=== PATIENT | female | born 1975 | race Caucasian/White ===

== ENCOUNTER 2023-09-21 16:21 | Emergency (ER) | payer OTHER ==
[~2023-09-21] VITALS: Ht 182.9 cm; Wt 83.3 kg
[2023-09-21] MEDS ORDERED: MELOXICAM15 MG PO (18:21)
[2023-09-21 19:49] VITALS: BP 127/76
== END 2023-09-21 19:33 | disposition home or self-care (01) ==
LOC: ED 16:21
DX: S82.832A Other fracture of upper and lower end of left fibula, initial encounter for closed fracture (principal); X50.1XXA Overexertion from prolonged static or awkward postures, initial encounter; Y93.66 Activity, soccer; Y99.0 Civilian activity done for income or pay
CPT/HCPCS: 73610; 99283-25

== ENCOUNTER 2024-03-29 11:54 | Day surgery (SDC) | payer OTHER ==
[~2024-03-29 11:54] MED LIST: IBLOOD GLUCOSE TEST STRIP 1 EA TEST VI PRN; LACTATED RINGER'S 1,000 ML IV SCH; LIDOCAINE HCL 1% 5 ML SDV INJ ONE; MELOXICAM15 MG PO; MIDAZOLAM HCL 5 MG/5 ML VIAL IV PRN; fentaNYL citrate 100 MCG/2 ML VIAL IV PRN
[2024-03-29 12:10] VITALS: BP 127/83
[2024-03-29] MEDS ORDERED: DAILY VALUE1 EACH PO (12:13)
[2024-03-29] MEDS ORDERED: CALCIUM500 MG PO (12:13)
[2024-03-29] MEDS ORDERED: GLUCOSAMINE-CH1 EACH PO (12:13)
[2024-03-29] MEDS ORDERED: HAIR, SKIN & N1 EAC2 PO (12:14)
[2024-03-29] MEDS ORDERED: MAGNESIUM500 MG PO (12:14)
[2024-03-29] MEDS ORDERED: MIDAZOLAM HCL 5 MG/5 ML VIAL ONE (12:26)
[2024-03-29] MEDS ORDERED: fentaNYL citrate 100 MCG/2 ML VIAL ONE (12:26)
[2024-03-29] MEDS ORDERED: MIDAZOLAM HCL 2 MG/2 ML VIAL ONE (13:15)
--- NOTE | 2024-03-29 13:37 | NUR ---
03/29/24 1337 Tracey Dueñas 1330-PT ARRIVES TO PACU RESTING ON LT SIDE, PT AWAKENS EASILY TO VERBAL STIMULI, DENIES PAIN OR NAUSEA, ENCOURAGED TO PASS GAS. PT FALLS BACK TO SLEEP EASILY, VSS ON 2L VIA NC, RR EVEN AND UNLABORED. 1335-PT TITRATED TO RA, VS REMAIN STABLE.
[2024-03-29 14:00] VITALS: BP 110/85
--- NOTE | 2024-03-30 13:30 | OR ---
[facility] [address], [place] [address] Signed DATE OF OPERATION: 03/29/2024 SURGEON: Sander Velasquez MD PREOPERATIVE DIAGNOSIS: Colon screening. POSTOPERATIVE DIAGNOSIS: 1 cm pedunculated polyp at 25 cm and two sessile small polyps at 20 cm. PROCEDURES: 1. Total colonoscopy to cecum with hot snare polypectomy x1 with application of hemoclip. 2. Cold morcellation polypectomy x2. ANESTHESIA: Intravenous sedation; fentanyl 200 mcg Versed 11 mg. INDICATION: This 48-year-old white woman is a patient of Johanna Ventura and Dr. Whipple (PET C[employer]GIVER) and referred for screening colonoscopy based on her age. She has no symptoms of bleeding, diarrhea or constipation and no family history of colon cancer. She is admitted to undergo colonoscopy for screening. She understands the risk of bleeding, infection, and perforation. FINDINGS: The prep was excellent. Complete colonoscopy was undertaken to the cecum. The sigmoid was somewhat tortuous. There was a relatively large pedunculated polyp at 25 cm which was excised with hot snare polypectomy technique. Application of hemoclip to the stump was additionally undertaken. There were two small sessile polyps at 20 cm, both excised also with cold morcellation technique. There were no other findings of note. PROCEDURE IN DETAIL: The patient was brought to the endoscopy suite and placed in the lateral decubitus position, given intravenous sedation to the point of slurred speech and nystagmus. Digital rectal examination was normal. An Olympus video colonoscope was passed in the rectum and manipulated throughout the colon noting a relatively large pedunculated polyp at approximately the sigmoid. The scope was advanced beyond this ultimately to the cecum. The ileocecal valve and Electronically Signed By: SANDER VELASQUEZ MD 03/30/24 [id number] PATIENT NAME: JAJA BOOTH OPERATIVE REPORT DATE OF : 75 REPORT #: [id number] PHYSICIAN: SANDER VELASQUEZ MD PCP: JOHANNA VENTURA PAC REPORT IS CONFIDENTIAL AND NOT TO BE RELEASED WITHOUT AUTHORIZATION [facility] [address], [place] [address] Signed appendiceal orifice were normal. The scope was then withdrawn and examination throughout showed no sign of abnormality until the pedunculated polyp once again. This was located approximately 25 cm from the anal verge. This was excised with hot snare polypectomy technique. It was grasped with a three prong grasper and withdrawn, removed and offloaded. The scope was reintroduced and passed to the site of polypectomy, which showed hemostasis, but an eschar in the central portion of the stalk that made one consider additional measures so as to avoid slough and bleed later. On that basis, a hemoclip was applied to it. The scope was then withdrawn and approximately 5 cm away at 20 cm there were two small polyps, one hyperplastic, the other adenomatous, both of them about 5 mm. These were excised with cold morcellation technique. Further withdrawal of the scope allowed for good visualization of the rectum. Retroflexed view was normal. Scope was removed and the patient was taken to the recovery room in good condition. CONCLUSION DIAGNOSIS: Polyps x3, excised. PLAN: Recommend repeat colonoscopy in 3 to 5 years based on the polyp seen. She will return to the ongoing care of ANNE MARIE Centeno. MD ALEJANDRA Luo/ELY /[id number] cc: Johanna Ventura PA-C Copies: JOHANNA VENTURA ~ Electronically Signed By: SANDER VELASQUEZ MD 03/30/24 1330 PATIENT NAME: JAJA BOOTH OPERATIVE REPORT DATE OF : 75 REPORT #: [id number] PHYSICIAN: SANDER VELASQUEZ MD PCP: JOHANNA VENTURA REPORT IS CONFIDENTIAL AND NOT TO BE RELEASED WITHOUT AUTHORIZATION
--- NOTE | 2024-04-02 10:43 | PATH ---
[facility] [address], [place] [address] Signed SPECIMEN(S): A SIGMOID POLYP AT 25 CM SPECIMEN(S): B COLON POLYP AT 20 CM SPECIMEN(S): C COLON POLYP AT 20 CM SPECIMEN SOURCE: A. SIGMOID POLYP AT 25 CM B. COLON POLYP AT 20 CM C. COLON POLYP AT 20 CM CLINICAL HISTORY: Screening, post: Polyps x 3. Special: #1 pedunculated polyp at 25 cm of sigmoid, #2 hyperplastic polyp at 20 cm, #3 hyperplastic polyp (#2) at 20 cm. FINAL PATHOLOGIC DIAGNOSIS: A. Colon, sigmoid at 25 cm, polypectomy: - Tubulovillous adenoma B. Colon, 20 cm, polypectomy: - Hyperplastic polyp C. Colon, 20 cm, polypectomy #2: - Hyperplastic polyp BRP MICROSCOPIC EXAMINATION: Histologic sections of all submitted blocks are examined by light microscopy. These findings, together with the gross examination, support the pathologic diagnosis. GROSS DESCRIPTION: A. The specimen, labeled and designated "Clair Booth, sigmoid polyp at 25 cm," is received in formalin and consists of one james soft tissue fragment, 1.1 cm. Entirely submitted in (A1). B. The specimen, labeled and designated "Clair Booth, colon polyp at 20 cm," is received in formalin and consists of four james soft tissue fragments, ranging from 0.2-0.3 cm. Entirely submitted in (B1). C. The specimen, labeled and designated "Carlos Alberto, E, colon polyp at 20 cm #2," is received in formalin and consists of three james soft tissue fragments, ranging from 0.2-0.4 cm. Entirely submitted in (C1). AB (under the direct supervision of a pathologist) The Gross Description was prepared using a voice recognition system. The report PATIENT NAME: JAJA BOOTH PATHOLOGY DATE OF : 75 REPORT #: [id number] PHYSICIAN: SANDER WILLS PCP: JOHANNA GRACIA PAC REPORT IS CONFIDENTIAL AND NOT TO BE RELEASED WITHOUT AUTHORIZATION [facility] [address], [place] [address] Signed was reviewed for accuracy; however, sound-alike word errors, addition and/or deletions may occur. If there is any question about this report, please contact Client Services. ADDITIONAL NOTES: Immunohistochemical and/or in situ hybridization studies if performed in this case included appropriate positive controls that reacted as expected. This test was developed and its performance characteristics determined by [facility]. It has not been cleared or approved by the U.S. Food and Drug Administration. The FDA has determined that such clearance or approval is not necessary. This test is used for clinical purposes. It should not be regarded as investigational or for research. [facility] is certified under the Clinical Laboratory Improvement Amendments of 1988 (CLIA) as qualified to perform high complexity clinical laboratory testing. PERFORMING LABORATORY: Technical component was performed by [facility], [address] [place] [address] (CLIA# [id number]). Professional interpretation was performed by [facility], [address] [place] [address] (CLIA#: [id number]). Diagnostician: Ronny Shaffer MD Pathologist Electronically Signed 04/02/2024 Copies: ~ PATIENT NAME: JAJA BOOTH PATHOLOGY DATE OF : 75 REPORT #: [id number] PHYSICIAN: SANDER WILLS PCP: JOHANNA GARCIA PAC REPORT IS CONFIDENTIAL AND NOT TO BE RELEASED WITHOUT AUTHORIZATION
== END 2024-03-29 14:15 | disposition home or self-care (01) ==
LOC: OPS 11:54 → DS 11:55 → OPS 13:15 → DS 13:15 → OPS 14:15
PROVIDERS: ATTEND Surgery
PROC: 0DBE8ZX Excision of Large Intestine, Via Natural or Artificial Opening Endoscopic, Diagnostic (ICD-10-PCS; principal; 2024-03-29 13:15)
DX: Z12.11 Encounter for screening for malignant neoplasm of colon (principal); D12.5 Benign neoplasm of sigmoid colon; K63.5 Polyp of colon; Z79.899 Other long term (current) drug therapy
CPT/HCPCS: 84703; 99153; G0500; J2250; J3010; J7121